=== PATIENT | female | born 1990 | race Caucasian/White ===

== ENCOUNTER → 2018-10-09 | Outpatient (CLI) | payer BC ==
[~2018-10-09] VITALS: Ht 170.2 cm; Wt 116.3 kg
[~2018-10-09] MED LIST: ALEVE 220MG220 MG PO; EFFEXOR 75M75 MG/TAB PO
[2018-10-09 10:37] VITALS: BP 128/90; PULSE 60
== END ==
LOC: LIGHT 08:34
DX: E88.81 Metabolic syndrome and other insulin resistance (principal); F32.9 Major depressive disorder, single episode, unspecified; G43.909 Migraine, unspecified, not intractable, without status migrainosus; E66.01 Morbid (severe) obesity due to excess calories; Z68.41 Body mass index [BMI] 40.0-44.9, adult; Z71.3 Dietary counseling and surveillance
CPT/HCPCS: G0463

== ENCOUNTER → 2018-11-07 | Outpatient (CLI) | payer BC ==
[~2018-11-07] VITALS: Ht 170.2 cm; Wt 116.8 kg
[~2018-11-07] MED LIST changes: -EFFEXOR 75M75 MG/TAB PO; +EFFEXOR-XR150 MG PO
[2018-11-07 16:51] VITALS: BP 136/70; PULSE 79
== END ==
LOC: LIGHT 14:39
DX: E88.81 Metabolic syndrome and other insulin resistance (principal); F32.9 Major depressive disorder, single episode, unspecified; G43.909 Migraine, unspecified, not intractable, without status migrainosus; E66.01 Morbid (severe) obesity due to excess calories; Z68.41 Body mass index [BMI] 40.0-44.9, adult; Z71.3 Dietary counseling and surveillance
CPT/HCPCS: G0463

== ENCOUNTER → 2018-11-12 | Outpatient (CLI) | payer BC | LOC: LIGHT 08:30 | DX: R73.01 Impaired fasting glucose (principal); F32.9 Major depressive disorder, single episode, unspecified; G43.909 Migraine, unspecified, not intractable, without status migrainosus; E66.01 Morbid (severe) obesity due to excess calories; Z68.41 Body mass index [BMI] 40.0-44.9, adult; Z71.3 Dietary counseling and surveillance ==

== ENCOUNTER → 2018-12-02 | Outpatient (CLI) | payer BC | LOC: LIGHT 15:50 | DX: E88.81 Metabolic syndrome and other insulin resistance (principal); F32.9 Major depressive disorder, single episode, unspecified; G43.909 Migraine, unspecified, not intractable, without status migrainosus; E66.01 Morbid (severe) obesity due to excess calories; Z68.41 Body mass index [BMI] 40.0-44.9, adult; Z71.3 Dietary counseling and surveillance ==

== ENCOUNTER → 2018-12-19 | Outpatient (CLI) | payer BC ==
[~2018-12-19] VITALS: Ht 170.2 cm; Wt 117.5 kg
[2018-12-19 16:57] VITALS: BP 116/80; PULSE 97
== END ==
LOC: LIGHT 15:27
DX: E88.81 Metabolic syndrome and other insulin resistance (principal); F32.9 Major depressive disorder, single episode, unspecified; G43.909 Migraine, unspecified, not intractable, without status migrainosus; E66.01 Morbid (severe) obesity due to excess calories; Z68.41 Body mass index [BMI] 40.0-44.9, adult; Z71.3 Dietary counseling and surveillance
CPT/HCPCS: G0463

== ENCOUNTER → 2019-01-23 | Outpatient (CLI) | payer BC ==
[~2019-01-23] VITALS: Ht 170.2 cm; Wt 118.4 kg
[2019-01-23 15:12] VITALS: BP 130/64; PULSE 99
== END ==
LOC: LIGHT 13:32
DX: E88.81 Metabolic syndrome and other insulin resistance (principal); F32.9 Major depressive disorder, single episode, unspecified; G43.909 Migraine, unspecified, not intractable, without status migrainosus; E66.01 Morbid (severe) obesity due to excess calories; Z68.41 Body mass index [BMI] 40.0-44.9, adult; Z71.3 Dietary counseling and surveillance
CPT/HCPCS: G0463

== ENCOUNTER → 2019-02-18 | Outpatient (CLI) | payer BC | LOC: BHSO 09:09 | DX: Z76.89 Persons encountering health services in other specified circumstances (principal); E66.01 Morbid (severe) obesity due to excess calories ==

== ENCOUNTER → 2019-04-10 | Outpatient (CLI) | payer BC ==
[~2019-04-10] VITALS: Ht 170.2 cm; Wt 119.1 kg
[2019-04-10 14:19] VITALS: BP 142/80; PULSE 92
== END ==
LOC: LIGHT 08:16
DX: E88.81 Metabolic syndrome and other insulin resistance (principal); F32.9 Major depressive disorder, single episode, unspecified; G43.909 Migraine, unspecified, not intractable, without status migrainosus; E66.01 Morbid (severe) obesity due to excess calories; Z68.41 Body mass index [BMI] 40.0-44.9, adult; Z71.3 Dietary counseling and surveillance
CPT/HCPCS: G0463